=== PATIENT | female | born 1955 | race Asian ===

== ENCOUNTER 2023-01-24 11:06 | Outpatient (AMB) | payer OTHER, SELFPAY ==
[2023-01-24 11:05] VITALS: BP 110/60; PULSE 73; TEMP 36.3; O2SAT 100; BMI 29.2
--- NOTE | 2023-01-24 11:05 | MHC.OFFWIV ---
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 Pt states she was seen in the hospital yesterday. Patient Tobacco Use Status: Never used Tobacco Allergies Opioids - Morphine Analogues Adverse Reaction (Intermediate, Verified 01/24/23 11:45) Unknown Medication List - Last Reconciled 01/24/23 by John Huffman MD amlodipine 5 mg PO DAILY estradiol 0.01%(0.1mg/gram) grams vaginal losartan-hydrochlorothiazide 100-25 mg 1 tab PO DAILY omeprazole 20 mg PO DAILY prochlorperazine maleate mg PO tizanidine 2 mg PO BEDTIME valacyclovir 1,000 mg PO DAILY HPI [employer] RADIO OPERATOR, Left Arm redness HPI Details 67-year-old female presents to the office for a sick visit. Patient was recently discharged from [facility]. She had an IV infusion through her left cubital fossa. Patient received saline for dehydration. Since yesterday at the site of the IV, patient is experiencing pain and discomfort. There is minimal swelling to. PFSH Social History Patient Tobacco Use Status: Never used Tobacco Physical Exam Vital Signs: Last Vital Signs Temp 97.3 F 01/24/23 11:05 Pulse 73 01/24/23 11:05 BP 110/60 01/24/23 11:05 Pulse Ox 100 01/24/23 11:05 Oxygen Delivery Method Room Air 01/24/23 11:05 BMI result Body Mass Index 29.2 Skin Other: Left elbow: Antecubital fossa: Erythematous area, tenderness. The area is 3 or 4 centimetres in size. Assessment & Plan Assessment & Plan (1) Cellulitis: Code(s): L03.90 - Cellulitis, unspecified Plan: Most likely patient has phlebitis. Antibiotics called in. Patient was advised rest. Coding Level of Care Code New Pt Level 3 (12731) Diagnoses Cellulitis L03.90
== END 2023-01-24 12:13 | disposition home or self-care (01) ==
PROVIDERS: Visit Provider Internal Medicine
DX: L03.90 Cellulitis, unspecified (principal)
CPT/HCPCS: 99203

== ENCOUNTER 2023-11-08 16:01 | Outpatient (AMB) | payer OTHER, SELFPAY ==
[2023-11-08 16:17] VITALS: BP 112/66; PULSE 74; TEMP 36.6; O2SAT 97
--- NOTE | 2023-11-08 16:17 | AM.OFFWIN_ITS ---
Intake Vital Signs 11/08/23 16:17 Height 5 ft 1 in BP 112/66 Blood Pressure Location Rt brachial Position Sitting Pulse 74 Pulse Source Pulse Oximeter Temp 97.9 F Temp Source Temporal Artery Scan Pulse Oximetry (%) 97 Intake Visit Reasons: EP Bladder infection Intake Note: pt is here for possible bladder infection Patient Tobacco Use Status: Never used Tobacco Allergies Opioids - Morphine Analogues Adverse Reaction (Intermediate, Verified 11/08/23 16:17) Unknown Do you need a note to return to daycare/school/sports/work: No HPI HPI Comments History of Present Illness Details This is a 68-year-old female with a past medical history of hypertension and no previous abdominal surgeries presenting for evaluation of urinary frequency that she has had for the past 7 days. Patient denies having any fevers, chills, abdominal pain, dysuria, vaginal discharge or back pain. Patient has been taking AZO tablets [id number] without relief of her s ymptoms. PFSH Social History Patient Tobacco Use Status: Never used Tobacco Review of Systems Const All systems reviewed & are unremarkable except as noted in HPI and below Denies chills, Denies fatigue and Denies fever(s) Card Reports no additional complaints Resp Reports no additional complaints GI Reports no additional complaints, Denies abdominal pain, Denies nausea and Denies vomiting Reports no additional complaints, Denies hematuria, Denies dysuria, Reports urinary urgency and Denies vaginal discharge Musc Reports no additional complaints Skin/Breast Reports system reviewed and no additional complaints, except as documented Neuro Reports no additional complaints Psych Reports no additional complaints Endo Denies fatigue Physical Exam Vital Signs: Last Vital Signs Temp 97.9 F 11/08/23 16:17 Pulse 74 11/08/23 16:17 BP 112/66 11/08/23 16:17 Pulse Ox 97 11/08/23 16:17 Patient is afebrile. Const General: cooperative, comfortable, no acute distress, alert and awake Nutritional Appearance: average body habitus Orientation/consciousness: oriented to person Limitations: no limitations Resp Effort & Inspection: normal respiratory effort Auscultation: clear to auscultation bilaterally Cardio Rate: regular rate Rhythm: regular rhythm GI Palpation (GI): Soft to palpation and Tenderness to palpation present (GI) suprapubicly; not in the LLQ, not in the RLQ and with no rebound tenderness Auscultation: normal bowel sounds General: Yes Bimanual renal exam normal bilaterally and No bladder normal to palpation (suprapubic tenderness) External Female Exam: normal external appearance, normal appearance of the urethra, No erythema, No externally tender, No external swelling, No lesion, No urethral discharge and other (no vaginal discharge noted at the vaginal introitus) Bimanual exam- vagina & uterus: No bladder normal to palpation (suprapubic tenderness) OB/external & speculum: external exam normal Skin General skin exam: no rashes or lesions noted Neuro General: oriented to person Psych Appearance: grossly normal Mental Status: mental status grossly normal Insight: Good insight present (Psych) Judgement: Good judgement present (Psych) Results Reviewed Results Reviewed: Urinalysis reviewed with patient; urine culture will be obtained. Assessment & Plan Assessment & Plan (1) Increased urinary frequency: Comment: There is no evidence of an acute urinary tract infection on urinalysis and no vaginal discharge noted on external examination. Code(s): R35.0 - Frequency of micturition Plan: Urine culture is pending at this time. Patient will continue to use azo OTC and wait for the culture results. Orders: Orders Urine Culture Today R35.0 - Frequency of micturition Coding Level of Care Code Est Pt Level 3 (96795) Diagnoses Increased urinary frequency R35.0 Time Spent (min) 20
== END 2023-11-08 16:43 | disposition home or self-care (01) ==
PROVIDERS: PCP Internal Medicine; Visit Provider Physician Assistant
DX: R35.0 Frequency of micturition (principal)
CPT/HCPCS: 99213

== ENCOUNTER 2023-11-08 17:02 | Outpatient (REF) | payer OTHER, SELFPAY | END 2023-11-08 17:03 | disposition home or self-care (01) | LOC: HO.LAB 17:02 | PROVIDERS: Visit Provider Physician Assistant | DX: R35.0 Frequency of micturition (principal) | CPT/HCPCS: 87086 ==

== ENCOUNTER 2024-01-09 07:50 | Outpatient (AMB) | payer OTHER, SELFPAY ==
--- NOTE | 2024-01-09 07:51 | A.OFFVIS_ITS ---
Vital Signs 01/09/24 07:53 Height 5 ft 1 in Weight 158 lb 2 oz BMI 29.9 BP 122/60 Blood Pressure Location Rt brachial Position Sitting Respiration 16 Pulse 70 Pulse Source Pulse Oximeter Pulse Oximetry (%) 100 Oxygen Delivery Method Room Air Intake Visit Reasons: ENP: ? Facial neuropathy - Confirmed Intake Note: Pt presents to the office for new pt consultation for facial pain. 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 It started 10 years ago . she had lipoma surgery ( in the back of her right neck)10 years ago -and since then she has numbness and discomfort in the right occipital region and in her right ear - pinna. It is a constant discomfort- calls it a nerve pain, tingling, burning, aching, numbs. Sometimes it wakes her up from sleep .she takes gabapentin 600mg qid and it helps. Turning her head makes it worse. she also has neck pain and daily headaches for 10 years. she wakes up everyday with a headache. The headaches are dull aching frontal pain , responds to 2 tylenols, takes meloxicam . No nausea vomiting photophobia or phonophobia. she reports daytime fatigue and frequent arousals. [facility] Medical History (Updated 01/09/24 @ 08:46 by Marycruz Luz MD) Hypersomnia Cervicogenic headache Cervical dystonia Facial paresthesia Stress incontinence (female) (male) Back pain Hyperlipidemia HTN (hypertension) GERD (gastroesophageal reflux disease) Eczema Cervical spondylosis Atrophic vaginitis Actinic keratosis Surgical History (Updated 01/09/24 @ 08:36 by Marycruz Luz MD) H/O lumbosacral spine surgery Status post excision of lipoma Social History Patient Tobacco Use Status: Never used Tobacco Physical Exam Vital Signs: Last Vital Signs Pulse 70 01/09/24 07:53 Resp 16 01/09/24 07:53 BP 122/60 01/09/24 07:53 Pulse Ox 100 01/09/24 07:53 Oxygen Delivery Method Room Air 01/09/24 07:53 BMI result Body Mass Index 29.9 Const General: cooperative, healthy appearing and no acute distress Nutritional Appearance: average body habitus Orientation/consciousness: patient oriented x3 Eyes Pupils: Equal, round and reactive pupils present Neck Other: severe restricted range of motion with difficulty with neck tilt to left ,difficulty extending Tenderness in right splenius, trapezius levator , dystonia Neuro General: patient oriented x3, gait normal, tone normal, moves all extremities and no focal motor deficits Cranial nerves: Yes Facial sensation intact/muscles of mastication intact, Yes Equal, round and reactive pupils present, Yes Bilaterally intact EOM present, Yes Nystagmus not present, Yes Normal facial strength present, Yes Midline tongue present, Yes Symmetric palate elevation present and Yes Ability to bilaterally elevate shoulders present Cognition (Neuro): normal cognition Gait exam (Neuro): Normal gait present Motor exam (neuro): 5/5 motor strength present throughout and Normal motor muscle tone present throughout Deep tendon reflexes (DTR's): Right triceps reflex intensity grade: 1+, Left triceps reflex intensity grade: 1+, Rt Biceps (C5, C6): 1+, Left biceps reflex intensity grade: 1+, Right brachioradialis reflex intensity grade: 1+, Left brachioradialis reflex intensity grade: 1+, Right patellar reflex intensity grade: 1+ and Left patellar reflex intensity grade: 1+ Coordination: [id number] test normal Results Reviewed Results Reviewed: MRI C spine w/o3/2022 c3-4 small disc bulge facet arthropathy C4-5-small central disc protrusion effacing ventral subarachnoid space Left aide deg arthropathy C5-6 broad based central to left osteophytic disc bulge indenting ventral spinal cord. Mild left formainal narrowing C6-7- diffuse posterior osteophyte/disc bulge causing stenosis . Mild palmer forainal narrwing. No cord compression small perineural cysts MRI orbit face neck - normal Assessment & Plan Assessment & Plan (1) Facial paresthesia: Comment: occipital parietal aural paresthesia on the right? reflex sympathetic dystrophy ? occipital neuralgia Code(s): R20.2 - Paresthesia of skin Category: Medical (2) Cervical dystonia: Comment: acquired , right laterocollis Code(s): G24.3 - Spasmodic torticollis Category: Medical (3) Cervicogenic headache: Code(s): G44.86 - Cervicogenic headache Category: Medical (4) Hypersomnia: Code(s): G47.10 - Hypersomnia, unspecified Category: Medical Plan Reviewed her recent MRI of face orbits and C spine MRI she is already on oral tylenol, tizanidine gabapentin and meloxicam I will trial her on botox for her dystonia which can help with her headaches and paresthesia as well suggested to decrease tylenol use I will refer her to pain management for treatment of occipital neuralgia Home sleep test to r/o sleep apnea. Orders: Orders RT home sleep study Today G47.10 - Hypersomnia, unspecified Referrals Pain Management Referral G24.3 - Spasmodic torticollis, R20.2 - Paresthesia of skin Coding Level of Care Code New Pt Level 4 (98433) Complex EM visit Add On G2211 Diagnoses Facial paresthesia R20.2 Cervical dystonia G24.3 Cervicogenic headache G44.86 Hypersomnia G47.10
[2024-01-09 07:53] VITALS: BP 122/60; PULSE 70; RESP 16; O2SAT 100; BMI 29.9
== END 2024-01-09 08:54 | disposition home or self-care (01) ==
PROVIDERS: PCP Internal Medicine; Visit Provider Psychiatry & Neurology Neurology
DX: R20.2 Paresthesia of skin (principal); G24.3 Spasmodic torticollis; G44.86 Cervicogenic headache; G47.10 Hypersomnia, unspecified
CPT/HCPCS: 99204

== ENCOUNTER → 2024-01-09 07:50 | Outpatient (BNVA) | payer OTHER, SELFPAY | PROVIDERS: PCP Internal Medicine; Visit Provider Psychiatry & Neurology Neurology ==

== ENCOUNTER 2024-01-18 10:39 | Outpatient (AMB) | payer OTHER, SELFPAY ==
--- NOTE | 2024-01-18 10:56 | MHC.OFFVIS ---
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 She was referred to us by Dr. Luz, Neurology. Pain started on the right side about 10 years s/p lipoma surgery behind right year and since then she has been having numbness, tingling, and burning discomfort in right occipital regions and right side of her face. She is left hand dominant. 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 Reports axial neck pain with right sided muscle spasms. She tends to tilt her head to the left. Reports episodic difficulty when driving and have to turn her head. Denies radiation of neck pain into her upper or lower extremities. Reports daily headaches for 10 years, wakes up with headaches. She has tried multiple OTC/prescribed medications and topical applications with partial benefit. Neck and occipital pain has been resistant to conservative treatments. Patient has pending approval for Botox injections for spasmodic torticollis through Neurology office. Patient completed physical therapy at [facility] and has undergone multiple massage with temporary improvements but continues with significant neck pain and occipital neuralgia symptoms. Denies previous spine surgery or injections. Pain affects her daily activities, functioning, sleep, work, social interactions and quality of life. Reports daily fatigue and disrupted sleep due to chronic pain. Denies any fever, chills, dizziness, nausea, vomiting, photophobia or phonophobia, bladder or bowel dysfunction or saddle anesthesia. Location: Neck, right side of face and occipital Duration: Chronic pain >3 years Characteristics of symptom or complaint: Burning, numbness, tingling, aching, spasming, shooting, throbbing, heavy Aggravating or associated factors: Movements, computer work, ROM, driving Relieving factors: Tylenol, tizanidine, gabapentin, meloxicam, heat/cold therapy Treatment: PT at [facility], massage, regular home exercise program [facility] Medical History (Updated 01/18/24 @ 11:30 by CASTILLO Nolen) Hypersomnia Cervicogenic headache Cervical dystonia Facial paresthesia Stress incontinence (female) (male) Back pain Hyperlipidemia HTN (hypertension) GERD (gastroesophageal reflux disease) Eczema Cervical spondylosis Atrophic vaginitis Actinic keratosis Surgical History (Updated 01/09/24 @ 08:36 by Marycruz Luz MD) H/O lumbosacral spine surgery Status post excision of lipoma Social History Patient Tobacco Use Status: Never used Tobacco Review of Systems Const All systems reviewed & are unremarkable except as noted in HPI and below Physical Exam Vital Signs: Last Vital Signs Pulse 75 01/18/24 11:02 BP 139/64 01/18/24 11:02 Pulse Ox 99 01/18/24 11:02 Oxygen Delivery Method Room Air 01/18/24 11:02 BMI result Body Mass Index 28.3 General: Appears afebrile. Alert and oriented. Mood and affect appropriate. Follows and participates in conversation appropriately. Respiratory effort is unlabored. No cough. Able to transition from sit to stand unassisted. Ambulates with bilaterally normal heel strike and toe off. Neck Neck: Yes normal visual inspection, Yes no lymphadenopathy, Yes supple, No anterior neck swelling, Yes torticollis (tilting head to the left), Yes no JVD, No prominent supraclavicular fat pad and No prominent dorsocervical fat pad General: Yes no CVA tenderness Back/Spine/Pelvis Other: Patient with decreased cervical ROM in all planes/especially with lateral rotation and bending. Reports increased pain with cervical extension. Spurling compression test is negative. Pain is unchanged by Spurling maneuver with retraction. Elvey's tension test negative bilaterally. Lhermitte's test was negative. DTR intact, +1 and symmetrical. Patient demonstrated 5/5 motor strength of bilateral upper extremities. 2 + radial pulses. There is tenderness to palpation in the cervical paraspinal muscles as well as bilateral trapezii right>left, right levator, and splenius muscles. No paravertebral tenderness over facet joints bilaterally. TTP right parietotemporal with tingling. Back: no CVA tenderness Cervical Spine: cervical ROM normal, cervical muscular tenderness, pain with cervical ROM, Cervical spine scars present (right lower occipital), cervical spasm (right), No Cervical spine tenderness and No step off deformity Thoracic/Lumbar Spine: thoracic and lumbar spine normal to inspection, No Thoracic/lumbar spine scar(s), thoraco-lumbar ROM normal, No thoracic spinal tenderness and No lumbar spinal tenderness Results Reviewed Results Reviewed: Assessment & Plan Assessment & Plan (1) Cervical spondylosis: Code(s): M47.812 - Spondylosis without myelopathy or radiculopathy, cervical region Category: Medical (2) Cervical dystonia: Comment: acquired , right laterocollis Code(s): G24.3 - Spasmodic torticollis Category: Medical (3) Cervicogenic headache: Code(s): G44.86 - Cervicogenic headache Category: Medical (4) Occipital neuralgia: Code(s): M54.81 - Occipital neuralgia Category: Medical Plan Discussed interventional treatments for cervical spondylosis and occipital neuralgia with cervicogenic headaches. Schedules for Bilateral Diagnostic C3-C4-C5 MBB and Right occipital nerve block with local and fluoroscopy for potential Sprint PNS trial. Expectations, risks and benefits were reviewed. Patient is aware she will be contacted to schedule this procedure. We also discussed therapeutic and Botox injections and RFA procedures. She has pending insurance approval for Botox injections. Script provided for acupuncture therapy. Patient will also trial massage therapy for chronic neck pain and spasms. Continue daily exercise program at home, good posture, adequate hydration, and avoid prone sleep position. All questions and concerns have been answered and patient agreed with the treatment plan. Follow-up after injections and sooner as needed. Orders: Referrals Acupuncture Referral G24.3 - Spasmodic torticollis, G44.86 - Cervicogenic headache, M47.812 - Spondylosis without myelopathy or radiculopathy, cervical region, M54.81 - Occipital neuralgia Coding Level of Care Code New Pt Level 4 (31048) Diagnoses Cervical spondylosis M47.812 Cervical dystonia G24.3 Cervicogenic headache G44.86 Occipital neuralgia M54.81
[2024-01-18 11:02] VITALS: BP 139/64; PULSE 75; O2SAT 99; BMI 28.3
== END 2024-01-18 11:27 | disposition home or self-care (01) ==
PROVIDERS: PCP Internal Medicine; Visit Provider Nurse Practitioner Family
DX: M47.812 Spondylosis without myelopathy or radiculopathy, cervical region (principal); G24.3 Spasmodic torticollis; G44.86 Cervicogenic headache; M54.81 Occipital neuralgia
CPT/HCPCS: 99204

== ENCOUNTER → 2024-01-18 10:39 | Outpatient (BNVA) | payer OTHER, SELFPAY | PROVIDERS: PCP Internal Medicine; Visit Provider Nurse Practitioner Family ==

== ENCOUNTER → 2024-02-26 08:39 | Outpatient (REF) | payer OTHER, SELFPAY | LOC: HO.SL 08:39 | PROVIDERS: PCP Internal Medicine; Visit Provider Psychiatry & Neurology Neurology | DX: G47.10 Hypersomnia, unspecified (principal) | CPT/HCPCS: 95806 ==

== ENCOUNTER 2024-02-28 06:09 | Outpatient (REF) | payer OTHER, SELFPAY | END 2024-02-28 06:10 | disposition home or self-care (01) | LOC: CF 06:09 | PROVIDERS: Visit Provider Internal Medicine | DX: M47.812 Spondylosis without myelopathy or radiculopathy, cervical region (principal); M54.81 Occipital neuralgia; G44.86 Cervicogenic headache | CPT/HCPCS: 64490; 64491; J2795; Q9967 ==

== ENCOUNTER 2024-02-28 08:44 | Outpatient (AMB) | payer OTHER, SELFPAY ==
[2024-02-28 09:01] VITALS: BP 142/67; PULSE 71; O2SAT 97
--- NOTE | 2024-02-28 09:01 | MHC.OFFVIS ---
Vital Signs 02/28/24 09:01 02/28/24 10:22 Height 5 ft 1 in BP 142/67 H 172/72 H Blood Pressure Location Lt brachial Rt brachial Position Sitting Sitting Pulse 71 71 Pulse Source Pulse Oximeter Pulse Oximeter Pulse Oximetry (%) 97 100 Oxygen Delivery Method Room Air Room Air Comment pre-op post-op Intake Visit Reasons: Ryland Dx C3-C4-C5 MBB Allergies Opioids - Morphine Analogues Adverse Reaction (Intermediate, Verified 01/18/24 10:59) Unknown HPI HPI Ryland Dx C3-C4-C5 MBB: Details: Patient presents for scheduled procedure. Denies any recent cough, cold, infection, fever or other significant changes in medical history since last office visit. [facility] Medical History (Updated 02/28/24 @ 09:40 by Zhen Dinh MD) Hypersomnia Cervicogenic headache Cervical dystonia Facial paresthesia Stress incontinence (female) (male) Back pain Hyperlipidemia HTN (hypertension) GERD (gastroesophageal reflux disease) Eczema Atrophic vaginitis Actinic keratosis Surgical History (Updated 01/09/24 @ 08:36 by Marycruz Luz MD) H/O lumbosacral spine surgery Status post excision of lipoma Social History Patient Tobacco Use Status: Never used Tobacco Physical Exam Vital Signs: Last Vital Signs Pulse 71 02/28/24 09:01 BP 142/67 H 02/28/24 09:01 Pulse Ox 97 02/28/24 09:01 Oxygen Delivery Method Room Air 02/28/24 09:01 Office Procedures Cervical/Thoracic Facet Inj Details: Diagnostic Cervical Medial Branch Block, Bilateral C3, C4, C5 medial branches After obtaining written consent, pre-procedure blood pressure and pulse were recorded and are in the nursing record for review. The patient was placed in a lateral position. The respective cervical area was prepped with chloraprep and draped in sterile fashion. The skin over the target medial branch nerves was anesthetized with 0.5% lidocaine. A 25 gauge 1.5 inch needle was inserted into the target medial branch nerve under fluoroscopic guidance. No paresthesias were elicited with needle placement and aspiration was negative for blood and CSF. Next, 0.2cc of omnipaque 180 was injected to verify positioning. Next 0.5 ml 0.5% bupivicaine was injected (0.5 cc total per level). The identical procedure was performed at the remaining levels. The skin was cleansed and a sterile bandage was applied. Following the procedure the patient's vital signs were stable. The patient tolerated the procedure well and no complications were encountered. Following the procedure the patient's vital signs were stable. The patient was discharged home in good condition with post-procedural instructions. Time Out: Immediately prior to the procedure, the following was verbally confirmed that there is a signed consent form and that the correct patient, planned procedure, site and side are consistent with documentation and that necessary equipment and/or blood products are available prior to the start of the case. Complications: none EBL: <5 cc 40548 - with Fluoroscopy 29922 - second level, with Fluoroscopy (bilateral) Procedure code (CPT) selection complete Assessment & Plan Assessment & Plan (1) Occipital neuralgia: Code(s): M54.81 - Occipital neuralgia Category: Medical (2) Cervicogenic headache: Code(s): G44.86 - Cervicogenic headache Category: Medical (3) Cervical spondylosis: Code(s): M47.812 - Spondylosis without myelopathy or radiculopathy, cervical region Category: Medical Plan Patient is status post bilateral diagnostic cervical medial branch blocks. Patient tolerated procedure well and was discharged home in stable condition with discharge instructions. All questions were answered. We will follow-up via telephone or in clinic to assess response to therapy. A follow-up appointment was made during today's visit. Orders: Orders FL guidance in treatment room Today M47.812 - Spondylosis without myelopathy or radiculopathy, cervical region Coding Level of Care Code Procedure Only Diagnoses Occipital neuralgia M54.81 Cervicogenic headache G44.86 Cervical spondylosis M47.812 CPT Codes Facet Injection Cervical/Thoracic - CPT: 89515 - with Fluoroscopy ([id number]) Facet Injection Cervical/Thoracic - CPT: 59688 - second level, with Fluoroscopy ([id number])
[2024-02-28 10:22] VITALS: BP 172/72; PULSE 71; O2SAT 100
== END 2024-02-28 10:30 | disposition home or self-care (01) ==
LOC: HO.PMCPRC 08:44
PROVIDERS: PCP Internal Medicine; Visit Provider Internal Medicine
DX: M47.812 Spondylosis without myelopathy or radiculopathy, cervical region (principal); M54.81 Occipital neuralgia; G44.86 Cervicogenic headache
CPT/HCPCS: 64490; 64491

== ENCOUNTER 2024-03-04 14:17 | Outpatient (AMB) | payer OTHER, SELFPAY ==
--- NOTE | 2024-03-04 14:21 | A.OFFVIS_ITS ---
Vital Signs 3 03/04/24 14:26 Height 5 ft 1 in Weight 150 lb BMI 28.3 BP 156/74 H Blood Pressure Location Rt brachial Position Sitting Pulse 75 Pulse Source Pulse Oximeter Pulse Oximetry (%) 99 Oxygen Delivery Method Room Air Intake Visit Reasons: s/p palmer Dx C3-C4-C5 MBB Intake Note: Pain today 08/18 Field Associate Required: No Accompanied by: Self / Same As Patient Allergies Opioids - Morphine Analogues Adverse Reaction (Intermediate, Verified 03/04/24 14:27) Unknown HPI Comments Details: Patient presents today to assess response to Bilateral Diagnostic C3-C4-C5 MBB on 02/28/[address] Dinh. Patient reports 50-60% pain relief most notable the next day after the procedure with partial improvement in her daily functioning, ROM and sleep. Patient reports injections were not well tolerated and she had significant localized tenderness after procedure. However, she reports no shooting pain towards her right head or neck since injections. We also discussed occipital nerve block on the right. Patient is hesitant towards Sprint PNS trial after she has reviewed procedure. She was approved for Botox injections with Neurology and is interested to undergo therapeutic cervical medial branch blocks with oral Ativan as next steps. Patient takes Tylenol and muscle relaxant for pain with minimal relief. Acupuncture not tried due to high out of pocket copay. Denies any recent cough, cold, infection, fever, any significant changes in her medical history, medications or recent hospitalizations. Past Procedures: 02/28/24: Bilateral Diagnostic C3-C4-C5 MBB-50-60% pain relief for one day PRIOR: Patient is a very pleasant 68 years old female with history of cervicogenic headache, cervical dystonia, cervical spondylosis presents today for initial evaluation chronic neck pain with occipital neuralgia. She was referred to us by Dr. Luz, Neurology. Pain started on the right side about 10 years s/p lipoma surgery behind right year and since then she has been having numbness, tingling, and burning discomfort in right occipital regions and right side of her face. She is left hand dominant. 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 Reports axial neck pain with right sided muscle spasms. She tends to tilt her head to the left. Reports episodic difficulty when driving and have to turn her head. Denies radiation of neck pain into her upper or lower extremities. Reports daily headaches for 10 years, wakes up with headaches. She has tried multiple OTC/prescribed medications and topical applications with partial benefit. Neck and occipital pain has been resistant to conservative treatments. Patient has pending approval for Botox injections for spasmodic torticollis through Neurology office. Patient completed physical therapy at [facility] and has undergone multiple massage with temporary improvements but continues with significant neck pain and occipital neuralgia symptoms. Denies previous spine surgery or injections. Pain affects her daily activities, functioning, sleep, work, social interactions and quality of life. Reports daily fatigue and disrupted sleep due to chronic pain. Denies any fever, chills, dizziness, nausea, vomiting, photophobia or phonophobia, bladder or bowel dysfunction or saddle anesthesia. Location: Neck, right side of face and occipital Duration: Chronic pain >3 years Characteristics of symptom or complaint: Burning, numbness, tingling, aching, spasming, shooting, throbbing, heavy Aggravating or associated factors: Movements, computer work, ROM, driving Relieving factors: Tylenol, tizanidine, gabapentin, meloxicam, heat/cold therapy Treatment: PT at [facility], massage, regular home exercise program [facility] Medical History Hypersomnia Cervicogenic headache Cervical dystonia Facial paresthesia Stress incontinence (female) (male) Back pain Hyperlipidemia HTN (hypertension) GERD (gastroesophageal reflux disease) Eczema Atrophic vaginitis Actinic keratosis Surgical History H/O lumbosacral spine surgery Status post excision of lipoma Social History Patient Tobacco Use Status: Never used Tobacco Review of Systems Const All systems reviewed & are unremarkable except as noted in HPI and below Physical Exam Vital Signs: Last Vital Signs Pulse 75 03/04/24 14:26 BP 156/74 H 03/04/24 14:26 Pulse Ox 99 03/04/24 14:26 Oxygen Delivery Method Room Air 03/04/24 14:26 BMI result Body Mass Index 28.3 General: Appears afebrile. Alert and oriented. Mood and affect appropriate. Follows and participates in conversation appropriately. Respiratory effort is unlabored. No cough. Occasional sneezing. Able to transition from sit to stand unassisted. Ambulates with bilaterally normal heel strike and toe off. Neck Neck: Yes normal visual inspection, Yes no lymphadenopathy, No anterior neck swelling, Yes torticollis (tilting head to the left) and Yes no JVD General: Yes no CVA tenderness Back/Spine/Pelvis Other: Patient with decreased cervical ROM in all planes/especially with lateral rotation and bending. Reports increased pain with cervical extension. Back: no CVA tenderness Cervical Spine: cervical muscular tenderness, pain with cervical ROM, Cervical spine scars present (right lower occipital), cervical spasm (right) and No Cervical spine tenderness Thoracic/Lumbar Spine: No Thoracic/lumbar spine scar(s), thoraco-lumbar ROM normal, No thoracic spinal tenderness and No lumbar spinal tenderness Results Reviewed Results Reviewed: Assessment & Plan Assessment & Plan (1) Cervical spondylosis: Code(s): M47.812 - Spondylosis without myelopathy or radiculopathy, cervical region Category: Medical (2) Cervicogenic headache: Code(s): G44.86 - Cervicogenic headache Category: Medical (3) Cervical dystonia: Comment: acquired , right laterocollis Code(s): G24.3 - Spasmodic torticollis Category: Medical (4) Occipital neuralgia: Code(s): M54.81 - Occipital neuralgia Category: Medical Plan Schedule for Bilateral Therapeutic C3-C4-C5 MBB with local and fluoroscopy and oral Ativan. Script sent today. Side effects and precautions discussed with patient. Expectations, risks and benefits were reviewed. Patient is aware she will be contacted to schedule this procedure. Justification for interventional therapy: ? Patient with average pain > 6/10 ? Patient has exhausted conservative therapy, including PT, massage, Tylenol, muscle relaxants, NSAIDs, ice/heat therapy ? Bilateral Diagnostic C3-C4-C5 MBB-50-60% pain relief for 1 day The risks, consequences, alternatives, and benefits of various treatment options were discussed with the patient in great detail, including conservative management, injections and procedures. Patient also has pending first Botox (Xeomin) injection through Neurology for cervical dystonia/torticollis. Continue daily exercise program at home, good posture, adequate hydration, and avoid prone sleep position. All questions and concerns have been answered and patient agreed with the treatment plan. Follow-up after injections and sooner as needed. Medications: New 2 lorazepam (Ativan) Take one tab 30-60 min prior to injection procedure. May repeat x2 1 mg PO DAILY PRN 3 tabs 0RF pre-procedural anxiety G44.86 - Cervicogenic headache, M47.812 - Spondylosis without myelopathy or radiculopathy, cervical region Coding Level of Care Code Est Pt Level 4 (93219) Complex EM visit Add On G2211 Diagnoses Cervical spondylosis M47.812 Cervicogenic headache G44.86 Cervical dystonia G24.3 Occipital neuralgia M54.81
[2024-03-04 14:26] VITALS: BP 156/74; PULSE 75; O2SAT 99; BMI 28.3
== END 2024-03-04 14:55 | disposition home or self-care (01) ==
PROVIDERS: PCP Internal Medicine; Visit Provider Nurse Practitioner Family
DX: M47.812 Spondylosis without myelopathy or radiculopathy, cervical region (principal); G44.86 Cervicogenic headache; G24.3 Spasmodic torticollis; M54.81 Occipital neuralgia
CPT/HCPCS: 99214

== ENCOUNTER → 2024-03-04 14:17 | Outpatient (BNVA) | payer OTHER, SELFPAY | PROVIDERS: PCP Internal Medicine; Visit Provider Nurse Practitioner Family ==

== ENCOUNTER 2024-06-17 13:28 | Outpatient (AMB) | payer OTHER, SELFPAY ==
[2024-06-17 13:39] VITALS: BP 124/76; PULSE 85; O2SAT 98; BMI 31.7
--- NOTE | 2024-06-17 13:39 | MHC.OFFVIS ---
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 Accompanied by: Self / Same As Patient Allergies Opioids - Morphine Analogues Adverse Reaction (Intermediate, Verified 06/17/24 13:43) Unknown Medication List - Last Reconciled 06/17/24 by Marycruz Luz MD amlodipine 5 mg PO DAILY atorvastatin 20 mg PO DAILY estradiol 0.01%(0.1mg/gram) grams vaginal gabapentin 1,200 mg PO BID incobotulinumtoxinA (Xeomin) 100 units IM ONCE 12 weeks lorazepam (Ativan) 1 mg PO DAILY PRN losartan-hydrochlorothiazide 100-25 mg 1 tab PO DAILY meloxicam 15 mg PO DAILY omeprazole 20 mg PO DAILY prochlorperazine maleate mg PO tizanidine 2 mg PO BEDTIME valacyclovir 1,000 mg PO DAILY Do you need a note to return to daycare/school/sports/work: No HPI Comments Details: 68y/o female comes for treatment of his cervical dystonia ? Side effects including spread of toxin effect, dysphagia, breathing difficulties , bronchitis etc was discussed in detail and the patient agreed to the procedure.An informed consent was obtained ??? Botulinum toxin type A 100units X 1 -was diluted with 2 cc of normal saline at a concentration of 25 units in 0.5cc saline. Lot number [id number] expiration 02/2026 ??? Muscles injected ??? palmer Splenius - 25 units each ??? palmer levator 25 units each ? Total used 100 units [facility] Medical History Hypersomnia Cervicogenic headache Cervical dystonia Facial paresthesia Stress incontinence (female) (male) Back pain Hyperlipidemia HTN (hypertension) GERD (gastroesophageal reflux disease) Eczema Atrophic vaginitis Actinic keratosis Surgical History H/O lumbosacral spine surgery Status post excision of lipoma Social History Patient Tobacco Use Status: Never used Tobacco Physical Exam Vital Signs: Last Vital Signs Pulse 85 06/17/24 13:39 BP 124/76 06/17/24 13:39 Pulse Ox 98 06/17/24 13:39 Oxygen Delivery Method Room Air 06/17/24 13:39 BMI result Body Mass Index 31.7 Const General: cooperative, healthy appearing and no acute distress Nutritional Appearance: average body habitus Orientation/consciousness: patient oriented x3 Eyes Pupils: Equal, round and reactive pupils present Neck Other: severe restricted range of motion with difficulty with neck tilt to left ,difficulty extending Tenderness in right splenius, trapezius levator , dystonia Neuro General: patient oriented x3, gait normal, tone normal, moves all extremities and no focal motor deficits Cranial nerves: Yes Facial sensation intact/muscles of mastication intact, Yes Equal, round and reactive pupils present, Yes Bilaterally intact EOM present, Yes Nystagmus not present, Yes Normal facial strength present, Yes Midline tongue present, Yes Symmetric palate elevation present and Yes Ability to bilaterally elevate shoulders present Cognition (Neuro): normal cognition Gait exam (Neuro): Normal gait present Motor exam (neuro): 5/5 motor strength present throughout and Normal motor muscle tone present throughout Deep tendon reflexes (DTR's): Right triceps reflex intensity grade: 1+, Left triceps reflex intensity grade: 1+, Rt Biceps (C5, C6): 1+, Left biceps reflex intensity grade: 1+, Right brachioradialis reflex intensity grade: 1+, Left brachioradialis reflex intensity grade: 1+, Right patellar reflex intensity grade: 1+ and Left patellar reflex intensity grade: 1+ Coordination: [id number] test normal Office Procedures Botulinum toxin Injection 09404 - Dystonia Procedure code (CPT) selection complete Office Meds incobotulinumtoxinA 100 unit intramuscular solution Performing Provider: Marycruz Luz MD [place] [facility] [place] [facility] Administered by: Marycruz Luz MD on 06/17/24 13:57 Dose Route Admin Location Dispensed Lot Number Expiration Date [facility] [employer] Based Therapist 100 unit IM 100 units [id number] [facility] Comments: see hpi Assessment & Plan Assessment & Plan (1) Cervical dystonia: Comment: acquired , right laterocollis Code(s): G24.3 - Spasmodic torticollis Category: Medical Plan Patient tolerated the procedure well She will call with any side effects Orders: Orders AMB Botulinum toxin Injection - Patient Supplied N/C Today G24.3 - Spasmodic torticollis Medications: New incobotulinumtoxinA 100 units IM ONCE 1 ea 0RF torticollis G24.3 - Spasmodic torticollis Coding Level of Care Code Est Pt Level 1 (74588) Diagnoses Cervical dystonia G24.3 CPT Codes Botox Injection - Botox 4: 78025 - Dystonia ([id number])
== END 2024-06-17 13:59 | disposition home or self-care (01) ==
PROVIDERS: PCP Internal Medicine; Visit Provider Psychiatry & Neurology Neurology
DX: G24.3 Spasmodic torticollis (principal)
CPT/HCPCS: 64616

== ENCOUNTER → 2024-06-17 13:28 | Outpatient (BNVA) | payer OTHER, SELFPAY | PROVIDERS: PCP Internal Medicine; Visit Provider Psychiatry & Neurology Neurology | DX: G24.3 Spasmodic torticollis (principal) | CPT/HCPCS: 64616; 99211; J0588 ==

== ENCOUNTER 2024-09-23 13:08 | Outpatient (AMB) | payer OTHER, SELFPAY ==
--- NOTE | 2024-09-23 13:11 | A.OFFVIS_ITS ---
Vital Signs 09/23/24 13:14 Height 5 ft 1 in Weight 168 lb BMI 31.7 Intake Visit Reasons: Botox Intake Note: Patient presents for botox injection. patient supplied Allergies Opioids - Morphine Analogues Adverse Reaction (Intermediate, Verified 09/23/24 13:18) Unknown Medication List - Last Reconciled 09/23/24 by Marycruz Luz MD amlodipine 5 mg PO DAILY atorvastatin 20 mg PO DAILY estradiol 0.01%(0.1mg/gram) grams vaginal gabapentin 1,200 mg PO BID incobotulinumtoxinA (Xeomin) 100 units IM ONCE 12 weeks lorazepam (Ativan) 1 mg PO DAILY PRN losartan-hydrochlorothiazide 100-25 mg 1 tab PO DAILY meloxicam 15 mg PO DAILY omeprazole 20 mg PO DAILY prochlorperazine maleate mg PO tizanidine 2 mg PO BEDTIME valacyclovir 1,000 mg PO DAILY HPI Comments Details: 69y/o female comes for treatment of his cervical dystonia ? Side effects including spread of toxin effect, dysphagia, breathing difficulties , bronchitis etc was discussed in detail and the patient agreed to the procedure.An informed consent was obtained ??? Botulinum toxin type A 100units X 1 -was diluted with 2 cc of normal saline at a concentration of 25 units in 0.5cc saline. Lot number [id number] expiration 01/2027 ??? Muscles injected ??? palmer Splenius - 25 units each ??? palmer levator 25 units each ? Total used 100 units [facility] Medical History Hypersomnia Cervicogenic headache Cervical dystonia Facial paresthesia Stress incontinence (female) (male) Back pain Hyperlipidemia HTN (hypertension) GERD (gastroesophageal reflux disease) Eczema Atrophic vaginitis Actinic keratosis Surgical History H/O lumbosacral spine surgery Status post excision of lipoma Social History Patient Tobacco Use Status: Never used Tobacco Physical Exam Vital Signs: BMI result Body Mass Index 31.7 Const General: cooperative, healthy appearing and no acute distress Nutritional Appearance: average body habitus Orientation/consciousness: patient oriented x3 Eyes Pupils: Equal, round and reactive pupils present Neck Other: severe restricted range of motion with difficulty with neck tilt to left ,difficulty extending Tenderness in right splenius, trapezius levator , dystonia Neuro General: patient oriented x3, gait normal, tone normal, moves all extremities and no focal motor deficits Cranial nerves: Yes Facial sensation intact/muscles of mastication intact, Yes Equal, round and reactive pupils present, Yes Bilaterally intact EOM present, Yes Nystagmus not present, Yes Normal facial strength present, Yes Midline tongue present, Yes Symmetric palate elevation present and Yes Ability to bilaterally elevate shoulders present Cognition (Neuro): normal cognition Gait exam (Neuro): Normal gait present Motor exam (neuro): 5/5 motor strength present throughout and Normal motor muscle tone present throughout Office Procedures Botulinum toxin Injection 30601 - Dystonia Procedure code (CPT) selection complete Office Meds onabotulinumtoxinA 100 unit solution for injection Performing Provider: Marycruz Luz MD [place] [facility] [place] [facility] Administered by: Marycruz Luz MD on 09/23/24 13:52 Dose Route Admin Location Dispensed Lot Number Expiration Date [facility] Header Operator 100 unit IM 100 units [id number] [employer] Comments: see hpi Assessment & Plan Assessment & Plan (1) Cervical dystonia: Comment: acquired , right laterocollis Code(s): G24.3 - Spasmodic torticollis Category: Medical Plan Patient tolerated the procedure well She will call with any side effects Orders: Orders AMB Botulinum toxin Injection - Patient Supplied N/C Today G24.3 - Spasmodic torticollis Medications: New onabotulinumtoxinA 100 units IM ONCE 1 ea 0RF dystonia G24.3 - Spasmodic torticollis Coding Level of Care Code Est Pt Level 1 (18015) Diagnoses Cervical dystonia G24.3 CPT Codes Botox Injection - Botox 4: 39913 - Dystonia ([id number])
[2024-09-23 13:14] VITALS: BMI 31.7
--- OUTSIDE RECORDS SUMMARY | 2024-09-23 16:01 | XMS_ITS | Clinical Summary ---
Author Organization [facility] Address [address] [place] [address] Care Team Providers Care Baton Teacher Name Role Phone Messi Ortiz MD Primary Care Provider [phone] Surgical History Surgery Date Site/Laterality Comments BACK SURGERY 06/27/2011 PROCEDURE: HISTORICAL BACK SURGERY; COMMENT: L5-S1; Dr Blanton COLONOSCOPY 04/16/2009 PROCEDURE: HISTORICAL COLONOSCOPY; COMMENT: diverticulosis HIP ARTHROPLASTY 11/26/2018 Right PROCEDURE: HISTORICAL HIP REPLACEMENT OTHER SURGICAL HISTORY 02/17/2021 PROCEDURE: HISTORY OTHER; COMMENT: lipoma removal from neck OTHER SURGICAL HISTORY 1995 Bilateral PROCEDURE: IMPLANT BREAST SILICONE/EQ; COMMENT: PT STATES IMPLANTS ARE RUPTURED!! Medical History Medical History Date Comments Foot fracture 2007 DX:Foot fracture ; COMMENT: surgery not required Diverticulosis of colon (wit hout mention of hemorrhage) 04/16/2009 DX:Diverticulosis of colon ( without mention of hemorrhage) Anxiety DX:Anxiety Esophageal reflux DX:Esophageal reflux Actinic keratosis, hx of DX:Acti sukhwinder keratosis, hx of Abdominal pain DX:Abdominal jose n Family history of colon canc er in father DX:Family history of colon c ancer in father Family history of colon canc er requiring screening colonoscopy DX:Family history of c olon cancer requiring screening colonoscopy Family History Medical History Relation Name Comments Colon cancer Father he at 63 y rs old Diabetes Father Cataracts Maternal Grandmother Cataracts Mother Heart failure Mother 2012 Hypertension Mother Blindness Neg Hx Breast cancer Neg Hx Coronary artery disease Neg Hx Glaucoma Neg Hx Macular degeneration Neg Hx Strabismus Neg Hx Relation Name Status Comments Father (Age 63) Maternal Grandmother Mother a/w Social History Tobacco Use Types Packs/Day Years Used Date Smoking Tobacco: Never Smokeless Tobacco: Never Alcohol Use Standard Drinks/Week Comments No 0 (1 standard drink = 0.6 oz pur e alcohol) Comments Unknown Sex and Gender Information Value Date Recorded Sex Assigned at Not on file Legal Sex Female 10:37 AM EST Gender Identity Not on file Sexual Orientation Not on file Obstetrics History Last Filed Vital Signs Vital Sign Reading Time Taken Comments Blood Pressure 138/68 08/24/2023 3:37 PM EDT Pulse 58 08/24/2023 3:37 PM EDT Temperature - - Respiratory Rate - - Oxygen Saturation - - Inhaled Oxygen Concentration - - Weight 72.3 kg (159 lb 6.4 oz) 08/24/2023 3:37 P M EDT Height 154.9 cm (5' 1 ) 08/24/2023 3:37 PM EDT Body Mass Index 30.12 08/24/2023 3:37 PM EDT Plan of Treatment Upcoming Encounters Date Type Department Care Team ([facility] st Contact Info) Description 12/06/2024 11:00 AM EDT Appointment Radiology Department [address] [address] Health Maintenance Due Date Last Done Comments Pneumococcal Vaccine: 50+ Years (1 of 1 - PCV) 09/23/2005 Zoster Vaccines (1 of 2) 09/23/2005 Cholesterol Screening (Lipid Panel) 05/20/2022 Colorectal Cancer Screening: Colonoscopy 05/20/2022 Depression Screening 05/20/2022 Falls Risk Assessment 05/20/2022 Hepatitis C Screening 05/20/2022 Social Influencers of Health Screening 05/20/2022 Hypertension/CHF/CAD Annual BMP Blood Test 05/21/2022 COVID-19 Vaccine ( - season) 2024 07/08/2020, 06/10/2020 Influenza Vaccine (Season Ended) 2025 03/20/2018 Breast Cancer Screening 11/16/2025 11/17/19 24, 11/17/2023, 10/07/2022, Additional history exists DTaP,Tdap,and Td Vaccines (3 - Td or Tdap) 05/07/2030 05/07/2020, 06/25/2008 RSV Immunization Adult Patients (1 - 1-dose 75+ series) 09/23/2030 Osteoporosis Screening (Bone Density Screening) 11/01/2032 11/01/2017 HIB Vaccines Aged Out No longer eligi ble based on patient's age to complete this topic HPV Vaccines Aged Out No longer eligi ble based on patient's age to complete this topic Hepatitis A Vaccines Aged Out No long er eligible based on patient's age to complete this topic Hepatitis B Vaccines Aged Out No long er eligible based on patient's age to complete this topic IPV Vaccines Aged Out No longer eligi ble based on patient's age to complete this topic MMR Vaccines Aged Out No longer eligi ble based on patient's age to complete this topic Meningococcal ACWY Vaccine Aged Out N o longer eligible based on patient's age to complete this topic Meningococcal B Vaccine Aged Out No l onger eligible based on patient's age to complete this topic RSV Immunization Patients Under 20 months Aged Out No longer eligible based on patient's age to complete this topic Varicella Vaccines Aged Out No longer eligible based on patient's age to complete this topic Procedures Procedure Name Priority Date/Time Associated Diagnosis Comments SCREENING MAMMOGRAPHY BI 2-VIEW BREAST INC CAD Routine 11/17/2023 10:02 AM EDT Encounter for screening mammogram for malignant neoplasm of breast DXA BONE DENSITY STUDY 1+ SITS AXIAL SKEL Routine 11/01/2017 11:10 AM EDT Asymptomatic menopausal state from Last 3 Months or Most Recently Relevant to Health Maintenance Results * SCREENING MAMMOGRAPHY BI 2-VIEW BREAST INC CAD (11/17/2023 10:02 AM EDT) Anatomical Region Laterality Modality Radiographic Edda ging 10/07/2022 9:55 AM EDT Narrative 11/19/2023 4:13 PM EDT This is a summary report. The complete report is available in the patient's medical record. If you cannot access the medical record, please contact the sending organization for a detailed fax or copy. Exam: Screening mammogram Findings: Digital bilateral full-field screening mammography is performed with tomosynthesis and interpreted with the aid of computer-aided detection. ??Comparison is made with 10/07/2022 and as far back as 03/17/2019. Breast parenchyma is composed of scattered fibroglandular densities. ??No new suspicious mass, architectural distortion, or suspicious calcifications. Impression: No mammographic evidence of malignancy. BI-RADS 1 - negative Procedure Note Yolanda Villareal MD - 03/26/2024 This is a summary report. The complete report is available in thepatient's medical record. If you cannot access the medical record, pleasecontact the sending organization for a detailed fax or copy. Exam: Screening mammogram Findings: Digital bilateral full-field screening mammography is performedwith tomosynthesis and interpreted with the aid of computer-aideddetection. Comparison is made with 10/07/2022 and as far back as1. Breast parenchyma is composed of scattered fibroglandular densities. Nonew suspicious mass, architectural distortion, or suspiciouscalcifications. Impression: No mammographic evidence of malignancy. BI-RADS 1 - negative us Robert Lerma CNM IMG XR PROCEDURES Final Resul t * DXA BONE DENSITY STUDY 1+ SITS AXIAL SKEL (11/01/2017 11:10 AM EDT) Anatomical Region Laterality Modality Bone Densitometr y 10/05/2017 10:1 7 AM EDT Narrative 11/01/2017 6:16 PM EDT DEXA SCAN: Lumbar Spine T-score is 1.3. ?? (SD relative to 20-29 y/o adult) Z-score is 2.9. ??(SD relative to age matched peers) This is considered normal by WHO criteria. Left Hip T-score is -0.5. Z-score is 0.9. This is considered normal by WHO criteria. Comparison exam(s): None. IMPRESSION: Normal by WHO criteria. [facility] Department of Internal Medicine recommends using National Osteoporosis Foundation (NOF) guidelines in treatment decisions related to osteoporosis. NOF guidelines suggest considering treatment for postmenopausal women and men aged 50 or older presenting with the following: History of hip or vertebral fracture. T-score = -2.5 (DXA) at the femoral neck, total hip, or spine, after appropriate evaluation to exclude secondary causes. Low bone mass (T-score between -1.0 and -2.5 at the femoral neck or spine) AND a 10-year probability of a hip fracture = 3% OR a 10-year probability of a major osteoporosis-related fracture = 20% based on the [place]-adapted WHO algorithm Please note that all treatment decisions require clinical judgment and consideration of individual patient factors, including patient preferences, co-morbidities, previous drug use, risk factors not captured in the FRAX model (e.g., frailty, falls, vitamin D deficiency, increased bone turnover, interval significant decline in bone density) and possible under- or over-estimation of fracture risk by FRAX. Optional alternative screening schedule based on alexandre Anthony., [facility] June 29, 2011 for patients with osteopenia (based on hip BMD T-score) is as follows: * ??advanced osteopenia (T scores -2.00 to -2.49), BMD testing every year * ??moderate osteopenia (T scores -1.50 to -1.99), BMD testing every 5 years mild osteopenia or normal BMD (T scores -1.50 and higher), BMD testing every 15 years Procedure Note Rosales Garcia MD - 05/30/2022 DEXA SCAN: Lumbar Spine T-score is 1.3. (SD relative to 20-29 y/o adult) Z-score is 2.9. (SD relative to age matched peers) This is considered normal by WHO criteria. Left Hip T-score is -0.5. Z-score is 0.9. This is considered normal by WHO criteria. Comparison exam(s): None. IMPRESSION: Normal by WHO criteria. [facility] Department of Internal Medicine recommendsusing National Osteoporosis Foundation (NOF) guidelines in treatment decisions related toosteoporosis. NOF guidelines suggest considering treatment for postmenopausal women and menaged 50 or older presenting with the following: History of hip or vertebral fracture. T-score = -2.5 (DXA) at the femoral neck, total hip, or spine, afterappropriate evaluation to exclude secondary causes. Low bone mass (T-score between -1.0 and -2.5 at the femoral neck or spine)AND a 10-year probability of a hip fracture = 3% OR a 10-year probability of a majorosteoporosis-related fracture = 20% based on the [place]-adapted WHO algorithm Please note that all treatment decisions require clinical judgment andconsideration of individual patient factors, including patient preferences, co- morbidities,previous drug use, risk factors not captured in the FRAX model (e.g., frailty, falls, vitaminD deficiency, increased bone turnover, interval significant decline in bone density) andpossible under- or over-estimation of fracture risk by FRAX. Optional alternative screening schedule based on alexandre Anthony., [facility] for patients with osteopenia (based on hip BMD T-score) is as follows: * advanced osteopenia (T scores -2.00 to -2.49), BMD testing every year * moderate osteopenia (T scores -1.50 to -1.99), BMD testing every 5years mild osteopenia or normal BMD (T scores -1.50 and higher), BMD testingevery 15 years Robert Lerma CNM IMG DXA PROCEDURES Final Resu lt from Last 3 Months or Most Recently Relevant to Health Maintenance Care Teams Baton Teacher Relationship Specialty Start Date End Date Messi Ortiz MD [address] [place] [address] PCP - General 04/02/23
--- OUTSIDE RECORDS SUMMARY | 2024-09-23 16:01 | XMS_ITS | Encounter Summary ---
Author Organization [facility] Address [address] [place] [address] Care Team Providers Care Director Of Community Services Name Role Phone Messi Ortiz MD Primary Care Provider Encounter Details Date Type Department Care Team (Late st Contact Info) Description 11/08/2018 Prep for Surgery [facility] [address] [place] [address] Floor [address] [place] [address] Janet Capellan, EXTRUSION SUPERVISOR [address] [facility] [address] [place] [address] Social History Tobacco Use Types Packs/Day Years Used Date Smoking Tobacco: Never Smokeless Tobacco: Never Alcohol Use Standard Drinks/Week Comments Never 0 (1 standard drink = 0.6 oz pur e alcohol) AUDIT-C Answer Date Recorded Frequency of Alcohol Consumption Never 11/05/2018 Average Number of Drinks Not on file 019 Frequency of Binge Drinking Not on file 10/10 Sex and Gender Information Value Date Recorded Sex Assigned at Not on file Gender Identity Not on file Sexual Orientation Not on file documented as of this encounter Plan of Treatment Not on file documented as of this encounter Visit Diagnoses Not on filedocumented in this encounter Care Teams Director Of Community Services Relationship Specialty Start Date End Date Messi Ortiz MD [address] [place] [address] PCP - General 11/05/18 documented as of this encounter
--- OUTSIDE RECORDS SUMMARY | 2024-09-23 16:01 | XMS_ITS | Clinical Summary ---
Author Organization [facility] Address [address] [place] [address] Care Team Providers Care Certified Composites Technician Name Role Phone Fuentes Johnson MD Primary Care Provider [phone] Medications Atorvastatin Calcium (LIPITOR) 20 MG tablet TAKE 1 TABLET BY MOUTH EVERY DAY 90 0 3 Active Gabapentin (NEURONTIN) 600 MG tablet TAKE 1 TABLET BY MOUTH 4 TIMES A DAY 120 0 3 Active tiZANidine HCl (ZANAFLEX) 2 MG tablet 90 0 3 Active Amoxicillin (AMOXIL) 500 MG capsule TAKE 4 CAPSULES BY MOUTH 1 HOUR PRIOR TO DENTAL PROCEDURE 20 0 3 Active Losartan Potassium-HCTZ (HYZAAR) 100-25 MG per tablet TAKE 1 TABLET BY MOUTH EVERY DAY 90 0 3 Active ESTRADIOL VAGINAL (ESTRACE) 0.1 MG/GM vaginal cream INSERT 1 GRAM DIRECTED VAGINALLY 3 TIMES WEEKLY 42 0 3 Active Tolterodine Tartrate (DETROL LA) 2 MG 24 hr capsule 90 0 3 Active Valacyclovir HCl (VALTREX) 1 g tablet 90 0 3 Active Amoxicillin-Pot Clavulanate (AUGMENTIN) 875-125 MG per tablet TAKE 1 TABLET BY MOUTH EVERY 12 HOURS FOR 10 DAYS 20 0 3 Active Meloxicam (MOBIC) 15 MG tablet TAKE 1 TABLET BY MOUTH DAILY NEEDED FOR PAIN 90 0 3 Active Triamcinolone Acetonide (KENALOG) 0.1 % cream 60 0 3 Active Tolterodine Tartrate (DETROL LA) 4 MG 24 hr capsule 90 0 3 Active Ketotifen Fumarate (ZADITOR) 0.025 % ophthalmic solution USE 1 DROP IN BOTH EYES EVERY 8 HOURS NEEDED FOR ALLERGIES 5 0 3 Active Ofloxacin (Floxin Otic Singles) 0.3 % otic solution INSTILL 5 DROPS INTO RIGHT EAR TWICE DAILY 10 0 3 Active Ciprofloxacin HCl (CIPRO) 500 MG tablet TAKE 1 TABLET BY MOUTH TWICE A DAY 10 0 3 Active amLODIPine Besylate (NORVASC) 5 MG tablet 90 0 3 Active Omeprazole (PriLOSEC) [address] capsule 90 0 3 Active prochlorperazine (COMPAZINE) 5 MG tablet 30 0 3 Active TRIMETHOPRIM-SUL FAMETHOXAZOLE (BACTRIM DS,SEPTRA DS) 800-160 MG per tablet 14 0 3 Active Active Problems Problem Noted Date Diagnosed Date Dry mouth and eyes 02/05/2023 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 Immunizations Name Administration Dates Next Due COVID-19, mRNA (Moderna Pre Fall 2022) Monovalent, 100 mcg/0.5 ml or 50 mcg/0.25 ml dose 04/15/2021,06/10/2020 Influenza,injectable,MDCK,quad,preservative 03/11 Influenza,injectable,quad,Prsrv Fr 04/02/2021 PCV-20 06/06/2022 Td (adult), adsorbed 05/07/2020 Tdap 10/18/2017,06/25/2008 Social History Tobacco Use Types Packs/Day Years Used Date Smoking Tobacco: Never Assessed Comments Unknown Sex and Gender Information Value Date Recorded Sex Assigned at Not on file Legal Sex Female 7:03 PM EDT Gender Identity Not on file Sexual Orientation Not on file Plan of Treatment Health Maintenance Due Date Last Done Comments Hepatitis C Screening 1955 Mammogram/Breast Imaging 1995 Colon Cancer Screening 09/23/2000 Zoster (Shingrix) (1 of 2) 09/23/2005 Bone Density 09/23/2020 COVID-19 Vaccine (2023-2 5 season) 2024 04/15/2021, 07/08/2020, 06/10/2020 Influenza (#1) 2024 04/02/2021, 03/20/2018 DTaP/Tdap/Td (4 - Td or Tdap) 05/07/2030, 10/18/2017, 06/25/2008 RSV (1 - 1-dose 75+ series) 09/23/2030 Pneumococcal 50+ years Completed 06/06/2022 HPV Vaccine Aged Out No longer eligi ble based on patient's age to complete this topic Hep A Aged Out No longer eligi ble based on patient's age to complete this topic Hep B Aged Out No longer eligi ble based on patient's age to complete this topic Hib Aged Out No longer eligi ble based on patient's age to complete this topic Meningococcal ACWY Aged Out No longer eligible based on patient's age to complete this topic Pap Smear Discontinued Zoster (Zostavax) Discontinued Care Teams Certified Composites Technician Relationship Specialty Start Date End Date Fuentes Johnson MD [address] [place] [address] PCP - General 01/15/23
--- OUTSIDE RECORDS SUMMARY | 2024-09-23 16:01 | XMS_ITS | Clinical Summary ---
Author Organization [facility] Address [address] [place] [address] Care Team Providers Care Grocery Sacker Name Role Phone Unknown, Primary Care Provider Unavailabl e Social History Tobacco Use Types Packs/Day Years Used Date Smoking Tobacco: Never Assessed Sex and Gender Information Value Date Recorded Sex Assigned at Not on file Gender Identity Not on file Sexual Orientation Not on file Job Start Date Occupation Industry Not on file Not on file Not on file Plan of Treatment Health Maintenance Due Date Last Done Comments Hepatitis C Screening 1955 COVID-19 Vaccine (#1) 03/25/1956 Depression Screening 1967 Preventative Health Evaluation 09/23/1973 Colon Cancer Screening (Colonoscopy) 09/23/2000 Breast Cancer Screening (Mammogram) 09/23/2005 Shingrix-Zoster Vaccine (1 of 2) 09/23/2005 DTap / Tdap / Td (2 - Td or Tdap) 06/25/2018 009 Fall Risk Assessment 09/23/2020 Osteoporosis Screening (DEXA Scan) 09/23/2020 Pneumococcal Vaccine (1 of 1 - PCV) 09/23/2020 Influenza Vaccine (#1) 2024 03/20/2018 RSV Adult > 60+ Yrs or Pregn ant (1 - 1-dose 75+ series) 09/23/2030 Hepatitis B Vaccines Aged Out No long er eligible based on patient's age to complete this topic RSV Ped < 20 months Aged Out No longe r eligible based on patient's age to complete this topic Care Teams Grocery Sacker Relationship Specialty Start Date End Date Unknown, PCP - General 04/01/22
--- OUTSIDE RECORDS SUMMARY | 2024-09-23 16:02 | XMS_ITS | Data Portability ---
Author Organization [facility] [address] Address [address] [place] [address] Assessment No assessment recorded. Plan of Treatment Reminders Order Date Submit Date Provider Last Modified By Organization Details Last Modified Time Details Appointments None record ed. Lab None record ed. Referral None record ed. Procedures None record ed. Surgeries None record ed. Imaging None record ed. Medication Orders None record ed. Patient TargetsNo targets recorded. Patient InstructionsNo instructions recorded. Reason for Referral None Reported. Medical Equipment None Reported. Vitals None Recorded Social History None recorded. Functional Status None recorded. Mental Status None recorded. Family History Nothing Reported. Medical History No medical history recorded. Gynecological HistoryNo gynecological history recorded. Obstetrics History GPAL:G 0 P 0 0 0 0 Past Encounters Encounter ID Performer Location Encounter Start Date Encounter Closed Date Diagnosis/Indication Diagnosis SNOMED-CT Code Diagnosis ICD10 Code Diagnosis Note [id number] [address] [address] 10/07/2018 16:39:08 10/07/2018 17:42:22 [id number] [facility] [address] [place] [address] 04/28/2019 10:55:51 04/28/2019 12:02:14 [id number] [address] [address] 10/13/2018 13:56:47 10/13/2018 14:28:54 [id number] [address] [address] 09/08/2021 17:33:45 09/08/2021 19:02:42 Health Concerns Section Related Observation LastModified by Organization Detai ls LastModified Time None Recorded Concern Status LastModified by Organization Details LastModified Time None Recorded Advance Directives Directive None Recorded Payers Encounter Date Sequence Insurance Name Policy Number Policy Puente Covered Member ID Puente Member ID Guarantor Name 10/13/2018 1 [facility]LY [facility] [id number] Luis Prakash [id number] [place] [facility] 04/28/2019 1 [facility] ([facility] [id number] Luis Prakash [id number] [place] [facility] 09/08/2021 1 [facility] [id number] Luis Prakash [id number] [facility] O[facility] Episode No OBEpisode recorded.
--- OUTSIDE RECORDS SUMMARY | 2024-09-23 16:02 | XMS_ITS | Clinical Summary ---
Author Organization [facility] Address [address] [place] [address] Care Team Providers Care Manager Of Engineering Name Role Phone Messi Ortiz MD Primary Care Provider Allergies No known active allergies Medications Medication Sig Dispensed Refills Start Date End Date Status valACYclovir (VALTREX) 1000 MG tabletIndications:hernandez gles Take 1,000 mg by mouth daily. Active losartan-hydrochloroth iazide (HYZAAR) 100-25 MG per tabletIndications:Hype rtension Take 1 tablet by mouth daily. Active meloxicam (MOBIC) 15 MG tabletIndications:Oste oarthritis Take 15 mg by mouth daily. Active tiZANidine (ZANAFLEX) 4 MG tabletIndications:Musc le Spasticity Take 4 mg by mouth 3 (three) times a day. Active simvastatin (ZOCOR) 20 MG tabletIndications:Hype rlipidemia Take 20 mg by mouth nightly. Active OMEprazole (PriLOSEC) 20 MG capsuleIndications:Hea rtburn Take 20 mg by mouth every morning before breakfast. Active gabapentin (NEURONTIN) 600 MG tabletIndications:Neur opathic Pain Take 600 mg by mouth 3 (three) times a day. Active VITAMIN B1-B12 POIndications:gummy vitamin Take by mouth. Active Multiple Vitamin tabletIndications:nay y vitamin Take 1 tablet by mouth daily. Active traMADol (ULTRAM) 50 MG tabletIndications:Prim irma osteoarthritis of left hip 1-2 tabs by mouth every 4-6 hours as needed for moderate-severe pain. Do not exceed 400mg/day 40 tablet 11/27/2018 Active aspirin enteric coated (ECOTRIN LOW STRENGTH) 81 MG EC tabletIndications:Prim irma osteoarthritis of left hip Take 1 tablet (81 mg total) by mouth 2 (two) times a day. Hold other aspirin products while taking this. 84 tablet 11/27/2018 Active Active Problems Problem Noted Date Diagnosed Date OA (osteoarthritis) of hip 11/26/2018 Hypertension 11/07/2018 Insomnia 11/07/2018 High cholesterol 11/07/2018 Anxiety 11/07/2018 Encounters Date Type Department Care Team Description 07/03/2024 Transcribe Orders [facility] Messi Ortiz MD Parotitis (Primary Dx) from Last 3 Months Family History Medical History Relation Name Comments Diabetes Father Heart failure Mother Dementia Neg Hx Relation Name Status Comments Father Mother Social History Tobacco Use Types Packs/Day Years [...] on file Sexual Orientation Not on file Last Filed Vital Signs Vital Sign Reading Time Taken Comments Blood Pressure 145/65 11/27/2018 6:40 PM EDT Pulse 60 11/27/2018 6:40 PM EDT Temperature 35.8 ??C (96.5 ??F) 11/27/2018 6:40 PM ED T Respiratory Rate 16 11/27/2018 6:40 PM EDT Oxygen Saturation 98% 11/27/2018 6:40 PM EDT Inhaled Oxygen Concentration - - Weight 74.8 kg (165 lb) 11/26/2018 7:39 AM EDT Height 156.8 cm (5' 1.75 ) 11/26/2018 7:39 AM ED T Body Mass Index 30.42 11/26/2018 7:39 AM EDT Plan of Treatment Health Maintenance Due Date Last Done Comments Hepatitis C Virus Screening 1955 DTaP/Tdap/Td Vaccines (1 - Tdap) 09/23/1974 Mammogram 1995 Colonoscopy 09/23/2000 Pneumococcal Vaccines 50+ (1 of 1 - PCV) 09/23/2005 Zoster (Shingles) Vaccine (1 of 2) 09/23/2005 DXA Bone Density (Females,Ag es 65 and older) 09/23/2020 Influenza Vaccine 01/10/2024 COVID-19 Vaccine ( - 2023-2 5 season) 2024 RSV Vaccine 60 years and old er and Patients (1 - 1-dose 75+ series) 09/23/2030 Hepatitis B Vaccines Aged Out No long er eligible based on patient's age to complete this topic Medical Devices Implanted Type Area Marketing Operations Manager Device Identifier Shelf Expiration Date Model / Serial / Lot [id number] Shell Acetabular 48mm Hip R3 Std - [id number] Implanted:Qty : 1 on 11/26/2018 by Roni Mccarthy MD at [facility] Joint Prosthesis Left: Hip [employer] - D [id number] 06/17/2028 [id number] / / [id number] Liner Acetabular R3 0d 48mm 32mm Xlpe Hip - [id number] Implanted:Qty : 1 on 11/26/2018 by Roni Mccarthy MD at [facility] Joint Prosthesis Left: Hip [employer] - D [id number] 06/18/2028 [id number] / / [id number] Stem Femoral Prim High Offset Anthology Por 3 Hip - [id number] Implanted:Qty : 1 on 11/26/2018 by Roni Mccarthy MD at [facility] Joint Prosthesis Left: Hip [employer] - D [id number] 06/14/2028 [id number] / / [id number] Head Femoral +0mm 12/14 Taper 32mm Hip Oxnm - [id number] Implanted:Qty : 1 on 11/26/2018 by Roni Mccarthy MD at [facility] Joint Prosthesis Left: Hip [employer] - D [id number] 07/29/2028 [id number] / / [id number] Cover Hole Reflc R3 Acetab Thrd - [id number] Implanted:Qty : 1 on 11/26/2018 by Roni Mccarthy MD at [facility] Screw Left: Hip [employer] - D [id number] 10/14/2028 [id number] / / [id number] Advance Directives * Full Code (Latest Code Status on File) Date Activated Date Inactivated Comments 11/26/2018 3:19 PM * Full Code Date Activated Date Inactivated Comments 11/26/2018 7:42 AM 11/26/2018 3:19 PM Care Teams Manager Of Engineering Relationship Specialty Start Date End Date Messi Ortiz MD [address] [place] [address] PCP - General 11/05/18
--- OUTSIDE RECORDS SUMMARY | 2024-09-23 16:02 | XMS_ITS | Encounter Summary ---
Author Organization [facility] Address [address] [place] [address] Care Team Providers Care Philosophy Instructor Name Role Phone Messi Ortiz MD Primary Care Provider Encounter Details Date Type Department Care Team (Late st Contact Info) Description 03/01/2022 Erroneous Encounter [facility] CONVERSION DEPT [address] [place] [address] Provider, MD Blas Social History Tobacco Use Types Packs/Day Years [...] on filedocumented in this encounter Care Teams Philosophy Instructor Relationship Specialty Start Date End Date Messi Ortiz MD [address] [place] [address] PCP - General 11/05/18 documented as of this encounter
--- OUTSIDE RECORDS SUMMARY | 2024-09-23 16:02 | XMS_ITS ---
Author Name [facility] Organization Unknown History of Medication Use Medication Directions Dispensed Refills Start Date End Date Stat us VITAMIN B1-B12 PO Take by mouth. active simvastatin (ZOCOR) 20 MG tablet Take 20 mg by mouth nightly. active tiZANidine (ZANAFLEX) 4 MG tablet Take 4 mg by mouth 3 (three) times a day. active OMEprazole (PriLOSEC) 20 MG capsule Take 20 mg by mouth every morning before breakfast. active meloxicam (MOBIC) 15 MG tablet Take 15 mg by mouth daily. active aspirin enteric coated (ECOTRIN LOW STRENGTH) 81 MG EC tablet Take 1 tablet (81 mg total) by mouth 2 (two) times a day. Hold other aspirin products while taking this. 11/27/2018 active Multiple Vitamin tablet Take 1 tablet by mouth daily. active traMADol (ULTRAM) 50 MG tablet 1-2 tabs by mouth every 4-6 hours as needed for moderate-severe pain. Do not exceed 400mg/day 11/27/2018 active valACYclovir (VALTREX) 1000 MG tablet Take 1,000 mg by mouth daily. active losartan-hydrochlorot hiazide (HYZAAR) 100-25 MG per tablet Take 1 tablet by mouth daily. active gabapentin (NEURONTIN) 600 MG tablet Take 600 mg by mouth 3 (three) times a day. active Problems Problem Status Onset Date Problem Type Date of Resoluti on Source High cholesterol active 2018-11-07 ProblemAct [facility] Parotitis active EncounterDiagnosisAct [facility] Anxiety active 2018-11-07 ProblemAct [facility] Insomnia active 2018-11-07 ProblemAct [facility] OA (osteoarthritis) of hip active 2018-11-26 ProblemAct [facility] Hypertension active 2018-11-07 ProblemAct [facility] Encounters Encounter Type Encounter Reason Primary Diagnosis Location Date Ambulatory [facility] 12/09 Care Team Organization Name Specialty Phone Email Start Date End Da te [facility] ELIDA RINALDI Primary Care 02/05/2023 02/05/2023 [facility] Alex Dill Primary Care 12/26/2022 02/14/2024
== END 2024-09-23 13:45 | disposition home or self-care (01) ==
LOC: HO.HSMS 13:08
PROVIDERS: PCP Internal Medicine; Visit Provider Psychiatry & Neurology Neurology
DX: G24.3 Spasmodic torticollis (principal)
CPT/HCPCS: 64616

== ENCOUNTER → 2024-09-23 13:08 | Outpatient (BNVA) | payer OTHER, SELFPAY | PROVIDERS: PCP Internal Medicine; Visit Provider Psychiatry & Neurology Neurology | DX: G24.3 Spasmodic torticollis (principal) | CPT/HCPCS: 64616; 99211; J0585 ==

== ENCOUNTER 2024-12-23 13:12 | Outpatient (AMB) | payer OTHER, SELFPAY ==
[2024-12-23 13:20] VITALS: BP 120/60; PULSE 79; O2SAT 99; BMI 29.1
--- NOTE | 2024-12-23 13:20 | A.OFFVIS_ITS ---
Vital Signs 12/23/24 13:20 Height 5 ft 1 in Weight 154 lb BMI 29.1 BP 120/60 Blood Pressure Location Lt brachial Position Sitting Pulse 79 Pulse Source Pulse Oximeter Pulse Oximetry (%) 99 Oxygen Delivery Method Room Air Intake Visit Reasons: Botox Scientific Aide Required: No Accompanied by: Self / Same As Patient Allergies Opioids - Morphine Analogues Adverse Reaction (Intermediate, Verified 12/23/24 13:20) Unknown Medication List - Last Reconciled 12/23/24 by Marycruz Luz MD amlodipine 5 mg PO DAILY atorvastatin 20 mg PO DAILY estradiol 0.01%(0.1mg/gram) grams vaginal gabapentin 1,200 mg PO BID incobotulinumtoxinA (Xeomin) 100 units IM ONCE 12 weeks lorazepam (Ativan) 1 mg PO DAILY PRN losartan-hydrochlorothiazide 100-25 mg 1 tab PO DAILY meloxicam 15 mg PO DAILY omeprazole 20 mg PO DAILY prochlorperazine maleate mg PO tizanidine 2 mg PO BEDTIME valacyclovir 1,000 mg PO DAILY HPI Comments Details: 69y/o female comes for treatment of his cervical dystonia ? Side effects including spread of toxin effect, dysphagia, breathing difficulties , bronchitis etc was discussed in detail and the patient agreed to the procedure.An informed consent was obtained ??? Botulinum toxin type A 100units X 1 -was diluted with 2 cc of normal saline at a concentration of 25 units in 0.5cc saline. Lot number [id number] expiration 02/2027 ??? Muscles injected ??? palmer Splenius - 25 units each ??? palmer levator 25 units each ? Total used 100 units [facility] Medical History Hypersomnia Cervicogenic headache Cervical dystonia Facial paresthesia Stress incontinence (female) (male) Back pain Hyperlipidemia HTN (hypertension) GERD (gastroesophageal reflux disease) Eczema Atrophic vaginitis Actinic keratosis Surgical History H/O lumbosacral spine surgery Status post excision of lipoma Social History Patient Tobacco Use Status: Never used Tobacco Physical Exam Vital Signs: Last Vital Signs Pulse 79 12/23/24 13:20 BP 120/60 12/23/24 13:20 Pulse Ox 99 12/23/24 13:20 Oxygen Delivery Method Room Air 12/23/24 13:20 BMI result Body Mass Index 29.1 Const General: cooperative, healthy appearing and no acute distress Nutritional Appearance: average body habitus Orientation/consciousness: patient oriented x3 Eyes Pupils: Equal, round and reactive pupils present Neck Other: severe restricted range of motion with difficulty with neck tilt to left ,difficulty extending Tenderness in right splenius, trapezius levator , dystonia Neuro General: patient oriented x3, gait normal, tone normal, moves all extremities and no focal motor deficits Cranial nerves: Yes Facial sensation intact/muscles of mastication intact, Yes Equal, round and reactive pupils present, Yes Bilaterally intact EOM present, Yes Nystagmus not present, Yes Normal facial strength present, Yes Midline tongue present, Yes Symmetric palate elevation present and Yes Ability to bilaterally elevate shoulders present Cognition (Neuro): normal cognition Gait exam (Neuro): Normal gait present Motor exam (neuro): 5/5 motor strength present throughout and Normal motor muscle tone present throughout Office Procedures Botulinum toxin Injection 69236 - Dystonia Procedure code (CPT) selection complete Office Meds incobotulinumtoxinA 100 unit intramuscular solution Performing Provider: Marycruz Luz MD Performing Location: [facility] Administered by: Marycruz Luz MD on 12/23/24 13:49 Dose Route Admin Location Dispensed Lot Number Expiration Date [facility] Ambulatory Service Representative 100 unit IM 100 units [id number] Total Dispensed Waste 100 units 0 % Comments: see hpi Assessment & Plan Assessment & Plan (1) Cervical dystonia: Comment: acquired , right laterocollis 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
--- OUTSIDE RECORDS SUMMARY | 2024-12-23 14:36 | XMS_ITS | Clinical Summary ---
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
--- OUTSIDE RECORDS SUMMARY | 2024-12-23 14:36 | XMS_ITS ---
Author Name [facility] Organization Unknown History of Medication Use Medication Directions Dispensed Refills Start Date End Date Stat us aspirin enteric coated (ECOTRIN LOW STRENGTH) 81 MG EC tablet Take 1 tablet (81 mg total) by mouth 2 (two) times a day. Hold other aspirin products while taking this. 11/27/2018 active traMADol (ULTRAM) 50 MG tablet 1-2 tabs by mouth every 4-6 hours as needed for moderate-severe pain. Do not exceed 400mg/day 11/27/2018 active gabapentin (NEURONTIN) 600 MG tablet Take 600 mg by mouth 3 (three) times a day. active losartan-hydrochlorot hiazide (HYZAAR) 100-25 MG per tablet Take 1 tablet by mouth daily. active meloxicam (MOBIC) 15 MG tablet Take 15 mg by mouth daily. active Multiple Vitamin tablet Take 1 tablet by mouth daily. active OMEprazole (PriLOSEC) 20 MG capsule Take 20 mg by mouth every morning before breakfast. active simvastatin (ZOCOR) 20 MG tablet Take 20 mg by mouth nightly. active tiZANidine (ZANAFLEX) 4 MG tablet Take 4 mg by mouth 3 (three) times a day. active valACYclovir (VALTREX) 1000 MG tablet Take 1,000 mg by mouth daily. active VITAMIN B1-B12 PO Take by mouth. active Problems Problem Status Onset Date Problem Type Date of Resoluti on Source High cholesterol active 2018-11-07 ProblemAct H [facility] Parotitis active EncounterDiagnosisAct [facility] OA (osteoarthritis) of hip active 2018-11-26 ProblemAct [facility] Hypertension active 2018-11-07 ProblemAct [facility] Anxiety active 2018-11-07 ProblemAct [facility] Insomnia active 2018-11-07 ProblemAct [facility] Encounters Encounter Type Encounter Reason Primary Diagnosis Location Date Ambulatory [facility] 12/09 Care Team Organization Name Specialty Phone Email Start Date End Da te [facility] ELIDA RINALDI Primary Care 02/05/2023 02/05/2023 [facility] Alex Dill Primary Care 12/26/2022 02/14/2024
--- OUTSIDE RECORDS SUMMARY | 2024-12-23 14:36 | XMS_ITS | Encounter Summary ---
Author Organization [facility] Address [address] [place] [address] Care Team Providers Care Fha Underwriter Name Role Phone Messi Ortiz MD Primary Care Provider [phone] Encounter Details Date Type Department Care Team (Late st Contact Info) Description 11/08/2018 Prep for Surgery [facility] [place] [address] [place] [address] [address] [place] [address] [place] [address] Janet Capellan, WELD INSPECTOR [address] [facility] [address] [place] [address] Social History Tobacco Use Types Packs/Day Years Used Date Smoking Tobacco: Never Smokeless Tobacco: Never Alcohol Use Standard Drinks/Week Comments Never 0 (1 standard drink = 0.6 oz pur e alcohol) AUDIT-C Answer Date Recorded Frequency of Alcohol Consumption Never 11/05/2018 Average Number of Drinks Not on file 019 Frequency of Binge Drinking Not on file 10/10 Comments Unknown Sex and Gender Information Value Date Recorded Sex Assigned at Not on file Legal Sex Female 9:22 AM EDT Gender Identity Not on file Sexual Orientation Not on file documented as of this encounter Plan of Treatment Not on file documented as of this encounter Visit Diagnoses Not on filedocumented in this encounter Care Teams Fha Underwriter Relationship Specialty Start Date End Date Messi Ortiz MD [address] [place] [address] PCP - General 11/05/18 documented as of this encounter
--- OUTSIDE RECORDS SUMMARY | 2024-12-23 14:36 | XMS_ITS | Data Portability ---
Author Organization [facility] [address] Address [address] [place] [address] Assessment No assessment recorded. Plan of Treatment [...] SNOMED-CT Code Diagnosis ICD10 Code Diagnosis Note [id number] [address] [facility] [place] [address] 10/07/2018 16:39:08 10/07/2018 17:42:22 [id number] [address] [facility] [place] [address] 04/28/2019 10:55:51 04/28/2019 12:02:14 [id number] [address] [place] [address] 10/13/2018 13:56:47 10/13/2018 14:28:54 [id number] [address] [place] [address] 09/08/2021 17:33:45 09/08/2021 19:02:42 Health Concerns Section Related Observation LastModified by Organization Detai ls LastModified Time None Recorded Concern Status LastModified by Organization Details LastModified Time None Recorded Advance Directives Directive None Recorded Payers Insurance Date Sequence Insurance Name Policy Number Policy Puente Covered Member ID Puente Member ID Guarantor Name 11/09/2022 1 [facility] [facility] [id number] Luis Prakash [id number] [place] Langston- ite OBGyn Episode No OBEpisode recorded.
--- OUTSIDE RECORDS SUMMARY | 2024-12-23 14:36 | XMS_ITS | Clinical Summary ---
Author Organization [facility] Address [address] [id number] Care Team Providers Care Crap Shooter Name Role Phone Unknown, Primary Care Provider [...] 1 - PCV) 09/23/2020 Influenza Vaccine (#1) 2025 03/20/2018 RSV Adult > 60+ Yrs or Pregn ant (1 - 1-dose 75+ series) 09/23/2030 Hepatitis B Vaccines Aged Out No long er eligible based on patient's age to complete this topic RSV Ped < 20 months Aged Out No longe r eligible based on patient's age to complete this topic Care Teams Crap Shooter Relationship Specialty Start Date End Date Unknown, PCP - General 04/01/22
--- OUTSIDE RECORDS SUMMARY | 2024-12-23 14:36 | XMS_ITS | Clinical Summary ---
Author Organization [facility] [address] [place] [address] [place] [address] Phone Care Team Providers Care Dry Plasterer Name Role Phone Messi Ortiz MD Primary Care Provider [phone] Encounters Date Type Department Care Team Description 12/06/2024 10:42 AM EDT - 12/06/2024 11:59 PM EDT Hospital Encounter Radiology Department [address] [phone] Encounter for screening mammogram for breast cancer Discharge Disposition: Home or Self Care from Last 3 Months Surgical History Surgery Date Site/Laterality Comments BACK [...] Sexual Orientation Not on file Obstetrics History Para Term AB IAB SAB Ectopic Multiple Livin g Live Births 0 0 0 Last Filed Vital Signs Vital Sign Reading [...] 08/24/2023 3:37 PM EDT Plan of Treatment Health Maintenance Due Date Last Done Comments Zoster Vaccines (1 of 2) 09/23/1974 Cholesterol Screening (Lipid Panel) 05/20/2022 Colorectal Cancer Screening: Colonoscopy 05/20/2022 Depression Screening 05/20/2022 Falls Risk Assessment 05/20/2022 Hepatitis C Screening 05/20/2022 Social Influencers of Health Screening 05/20/2022 Hypertension/CHF/CAD Annual BMP Blood Test 05/21/2022 COVID-19 Vaccine ( season) 2024 04/15/2021, 07/08/2020, 06/10/2020 Influenza Vaccine (#1) 2025 , 04/02/2021, 03/20/2018 Breast Cancer Screening 12/06/2026 12/07/19 25, 11/17/2023, 11/17/2023, Additional history exists DTaP,Tdap,and Td Vaccines (4 - Td or Tdap) 05/07/2030 05/07/2020, 10/18/2017, 06/25/2008 RSV Immunization Adult Patients (1 - 1-dose 75+ series) 09/23/2030 Osteoporosis Screening (Bone Density Screening) 11/01/2032 11/01/2017 Pneumococcal Vaccine: 50+ Years Completed 06/06/2022 HIB Vaccines Aged Out No longer eligi [...] Procedure Name Priority Date/Time Associated Diagnosis Comments MG MAMMO DIGITAL SCREENING W LUZ MARIA BILAT Routine 12/06/2024 11:00 AM EDT Encounter for screening mammogram for breast cancer DXA BONE DENSITY STUDY 1+ SITS AXIAL SKEL Routine 11/01/2017 11:10 AM EDT Asymptomatic menopausal state from Last 3 Months or Most Recently Relevant to Health Maintenance Results * MG Mammo Digital Screening w Luz Maria bilat (12/06/2024 11:00 AM EDT) Anatomical Region Laterality Modality Breast Bilateral Mammography 12/06/2024 5:01 PM EDT Impressions 12/06/2024 5:03 PM EDT No mammographic evidence for malignancy. BI-RADS CATEGORY: 1 - NEGATIVE RECOMMENDATION: Screening bilateral mammogram is recommended in 1 year. Mammo Location: [facility], [address] [place] [address], [id number], . -------- FINAL REPORT -------- Dictated By: Lois Walsh Dictated Date: 12/06/2024 17:01 ET Assigned Physician: Lois Walsh Reviewed and Electronically Signed By: Lois Walsh Signed Date: 12/06/2024 17:03 ET Workstation ID: [id number] Transcribed By: Self Edit Transcribed Date: 12/06/2024 17:01 ET Narrative 12/06/2024 5:03 PM EDT Bilateral screening mammogram. CLINICAL: 69 years old, Female, routine annual exam. COMPARISON: Prior studies, latest from 11/17/2023. TECHNIQUE: Bilateral MLO and CC views were obtained digitally with 2-D C views and 3-D mammogram (digital breast tomosynthesis). Computer-aided detection was utilized in evaluation of this exam (CAD). FINDINGS: There is no evidence of suspicious mass or architectural distortion. No worrisome calcifications are evident. There has been no significant change from prior exam(s). BREAST DENSITY: B - There are scattered areas of fibroglandular density. Procedure Note Lois Walsh MD - 12/06/2024 Bilateral screening mammogram. CLINICAL: 69 years old, Female, routine annual exam. COMPARISON: Prior studies, latest from 11/17/2023. TECHNIQUE: Bilateral MLO and CC views were obtained digitally with 2-D Cviews and 3-D mammogram (digital breast tomosynthesis). Computer-aideddetection was utilized in evaluation of this exam (CAD). FINDINGS: There is no evidence of suspicious mass or architectural distortion. Noworrisome calcifications are evident. There has been no significantchange from prior exam(s). BREAST DENSITY: B - There are scattered areas of fibroglandular density. IMPRESSION: No mammographic evidence for malignancy. BI-RADS CATEGORY: 1 - NEGATIVE RECOMMENDATION: Screening bilateral mammogram is recommended in 1 year. Mammo Location: [facility], [address] [place] [address], [id number], . -------- FINAL REPORT -------- Dictated By: Lois Walsh Dictated Date: 12/06/2024 17:01 ET Assigned Physician: Lois Walsh Reviewed and Electronically Signed By: Lois Walsh Signed Date: 12/06/2024 17:03 ET Workstation ID: [id number] Transcribed By: Self Edit Transcribed Date: 12/06/2024 17:01 ET us Messi Ortiz MD IMG BI PROCEDURES Final Result * DXA BONE DENSITY STUDY 1+ SITS [...] None. IMPRESSION: Normal by WHO criteria. The [facility] Department of Internal Medicine recommends using National [...] alternative screening schedule based on alexandre Anthony., [facility] June 29, 2011 for patients with osteopenia [...] None. IMPRESSION: Normal by WHO criteria. The [facility] Department of Internal Medicine recommendsusing National Osteoporosis [...] alternative screening schedule based on alexandre Anthony., [facility] for patients with osteopenia (based on hip BMD T-score) is as follows: * advanced osteopenia (T scores -2.00 to -2.49), BMD testing every year * moderate osteopenia (T scores -1.50 to -1.99), BMD testing every 5years mild osteopenia or normal BMD (T scores -1.50 and higher), BMD testingevery 15 years Robert ROLLINS IMG DXA PROCEDURES Final Resu lt from Last 3 Months or Most Recently Relevant to Health Maintenance Insurance MEDICARE [facility] Care Teams Dry Plasterer Relationship Specialty Start Date End Date Messi Ortiz MD [address] [place] [id number] PCP - General 04/02/23
== END 2024-12-23 14:10 | disposition home or self-care (01) ==
LOC: HO.HSMS 13:13
PROVIDERS: PCP Internal Medicine; Visit Provider Psychiatry & Neurology Neurology
DX: G24.3 Spasmodic torticollis (principal)
CPT/HCPCS: 64616

== ENCOUNTER → 2024-12-23 13:12 | Outpatient (BNVA) | payer OTHER, SELFPAY | PROVIDERS: PCP Internal Medicine; Visit Provider Psychiatry & Neurology Neurology | DX: G24.3 Spasmodic torticollis (principal) | CPT/HCPCS: 64616; 99211; J0588 ==